=== PATIENT | female | born 1960 | race African-American/Black ===

== ENCOUNTER 2017-07-27 09:19 | Outpatient (CLI) | payer OTHER ==
--- NOTE | 2017-07-27 21:15 | ULT ---
THYROID ULTRASOUND 07/27/17 Comparison is made with July 2014 ultrasound which showed some thyroid enlargement and two hypoec hoic nodules in the left lobe that were near 1 cm in size. Today's exam, again shows some thyroid enlargement. The right lobe measures 4.8 x 1.5 x 1.7 cm and ap pears normal. The left lobe measures 4.6 x 1.5 x 2.0 cm. There is a small 0.5 cm nodule in the inferi or pole, but I do not see two separate nodules today as before. No surrounding adenopathy was shown. IMPRESSION: 1. Mild thyromegaly, comparable to the 2015 study. 2. A single 0.5 cm nodule in the inferior pole of the left lobe. This compares favorably with th e prior study that showed two larger nodules. POS: HOME
== END 2017-07-27 09:20 | disposition home or self-care (01) ==
LOC: BURULT 09:19
PROVIDERS: ATTEND Family Medicine
DX: E04.1 Nontoxic single thyroid nodule (principal); E01.0 Iodine-deficiency related diffuse (endemic) goiter
CPT/HCPCS: 76536

== ENCOUNTER 2018-04-20 11:22 | Outpatient (CLI) | payer OTHER ==
[2018-04-20 17:38] LABS: #Basophils 0.1 thou/uL (0.0-0.2); #Eosinphils 0.2 thou/uL (0.0-0.7); #Lymphocytes 1.5 thou/uL (1.20-3.40); #Monocytes 0.6 thou/uL (0.11-0.59); #Neutrophils 3.2 thou/uL (1.40-6.50); %Basophils 1.3 % (0.0-1.0); %Eosinophils 4.1 % (0.0-10.0); %Lymphocytes 27.3 % (21.0-51.0); %Monocytes 10.4 % (0.0-10.0); %Neutrophils 56.9 % (42.0-75.0); Hemoglobin 14.3 g/dL (12.0-16.0); Mean Corpuscular HGB CONC 31.9 g/dL (32.0-36.0); Mean Corpuscular Hemoglobin 30.6 pg (27.0-31.0); Mean Corpuscular Volume 96.2 fL (78.0-98.0); Mean Platelet Volume 10.2 fL (7.4-10.4); Platelet Count 255 thou/uL (130-400); RBC Distribution Width 12.3 % (11.5-14.5); Red Blood Cell (RBC) Count 4.66 mill/uL (4.20-5.40); White Blood Cell (WBC) Count 5.6 thou/uL (4.8-10.8)
[2018-04-20 17:53] LABS: ALT (SGPT) 15 U/L (8-55); AST (SGOT) 20 U/L (5-34); Alkaline Phosphatase 104 U/L (40-150); Anion Gap 13 mmol/L (10-20); BUN (Urea Nitrogen) 9 mg/dL (9.8-20.1); Bilirubin, Direct 0.2 mg/dL (0.1-0.3); Bilirubin, Total 0.5 mg/dL (0.2-1.2); CRP (Inflammatory) Less than 0.50 mg/dL (= or < 0.5); Calc. Creatinine Clearance 0 mL/min (70-130); Calcium 9.8 mg/dL (7.8-10.44); Carbon Dioxide 27 mmol/L (22-29); Chloride 108 mmol/L (98-107); Estimated GFR-MDRD 66; Globulin 3.5 g/dL (2.4-3.5); Glucose 83 mg/dL (70-105); Potassium 4.6 mmol/L (3.5-5.1); Protein, Total 7.5 g/dL (6.0-8.3); Sodium 143 mmol/L (136-145)
--- NOTE | 2018-04-20 21:00 | RAD ---
LUMBAR SPINE COMPLETE 04/20/18 A total of seven views were provided and compared with the prior study of 10/20/15. No acute fracture was seen. The disc spaces are about the same as before showing some very slight rosemary rowing at L2-L3 but it is not substantially different than before. osteophytes are seen at all levels . T12 and L1 vertebral bodies have perhaps a very minor amount of wedging, but it is not impressive. Between flexion and extension, there was a little bit of anterior movement of L4 on L5, but the amoun t was insignificant. The SI joints were symmetrical and unchanged in appearance from before. There is some mild degenerative change of the hips. IMPRESSION: Degenerative changes of the spine. The appearance is only minimally different from 2016. POS: HOME
== END 2018-04-20 11:23 | disposition home or self-care (01) ==
LOC: BURRAD 11:22
PROVIDERS: ATTEND Family Medicine
DX: M54.42 Lumbago with sciatica, left side (principal); M06.4 Inflammatory polyarthropathy; B18.2 Chronic viral hepatitis C; M47.816 Spondylosis without myelopathy or radiculopathy, lumbar region
CPT/HCPCS: 36415; 72100; 80053; 82248; 85025; 85652; 86140

== ENCOUNTER 2018-05-05 14:12 | Emergency (ER) | payer OTHER ==
[2018-05-05 15:01] LABS: Eosinophils 3 % (0-10); Hemoglobin 14.6 g/dL (12.0-16.0); Lymphocytes 22 % (21-51); MDiff Complete? YES; Mean Corpuscular HGB CONC 34.4 g/dL (32.0-36.0); Mean Corpuscular Hemoglobin 30.8 pg (27.0-31.0); Mean Corpuscular Volume 89.5 fL (78.0-98.0); Mean Platelet Volume 9.9 fL (7.4-10.4); Monocytes 11 % (0-10); Neutrophil 63 % (42-75); Platelet Count 281 thou/uL (130-400); RBC Distribution Width 12.7 % (11.5-14.5); Red Blood Cell (RBC) Count 4.73 mill/uL (4.20-5.40); White Blood Cell (WBC) Count 5.9 thou/uL (4.8-10.8)
[2018-05-05 15:03] LABS: ALT (SGPT) 18 U/L (8-55); AST (SGOT) 22 U/L (5-34); Albumin 4.1 g/dL (3.5-5.0); Alkaline Phosphatase 108 U/L (40-150); Anion Gap 13 mmol/L (10-20); BUN (Urea Nitrogen) 8 mg/dL (9.8-20.1); Bilirubin, Total 0.3 mg/dL (0.2-1.2); Calc. Creatinine Clearance 0 mL/min (70-130); Carbon Dioxide 27 mmol/L (22-29); Chloride 107 mmol/L (98-107); Estimated GFR-MDRD 58; Globulin 4.4 g/dL (2.4-3.5); Glucose 91 mg/dL (70-105); Potassium 4.1 mmol/L (3.5-5.1); Protein, Total 8.5 g/dL (6.0-8.3); Sodium 143 mmol/L (136-145)
[2018-05-05 15:05] LABS: CKMB 3.1 ng/mL (0-6.6); Troponin I Less than 0.010 ng/mL (< 0.028)
[2018-05-05] MEDS ORDERED: Hydrochlorothiazide 25 MG TAB ONE (16:00)
--- NOTE | 2018-05-05 19:59 | RAD ---
PORTABLE CHEST: Date: 05-05-18 FINDINGS: An AP portable film at 1419 is compared with a 11-07-03 study. The heart remains normal in size and the lungs are clear. No infiltrate or effusion is seen. The medi astinum appears normal. IMPRESSION: No acute thoracic finding. POS: HOME
== END 2018-05-05 16:07 | disposition home or self-care (01) ==
LOC: BURERS 14:12
DX: I10 Essential (primary) hypertension (principal); R00.2 Palpitations; F17.210 Nicotine dependence, cigarettes, uncomplicated; Z79.899 Other long term (current) drug therapy
CPT/HCPCS: 71045; 80053; 82553; 84443; 84484; 85025; 93005

== ENCOUNTER 2018-08-09 10:43 | Outpatient (CLI) | payer OTHER ==
--- NOTE | 2018-08-09 18:36 | ULT ---
THYROID ULTRASOUND: 07/12/18 Ultrasonography of the thyroid gland was done in this patient with a history of a thyroid nodule. The right lobe measures 4.9 x 1.5 x 2.1 cm. No masses were seen. The left lobe measures 5.3 x 1.5 x 2.1 cm. A small 6 to 7 mm nodule is seen in the inferior pole of t his lobe. No surrounding adenopathy was shown. IMPRESSION: 1. Mild thyromegaly. 2. 6 to 7 mm nodule, inferior pole, left lobe. POS: HOME
== END 2018-08-09 10:44 | disposition home or self-care (01) ==
LOC: BURULT 10:43
PROVIDERS: ATTEND Otolaryngology Plastic Surgery within the Head & Neck
DX: Z86.39 Personal history of other endocrine, nutritional and metabolic disease (principal); E04.1 Nontoxic single thyroid nodule
CPT/HCPCS: 76536

== ENCOUNTER 2021-05-19 13:08 | Outpatient (CLI) | payer OTHER | END 2021-05-19 13:09 | disposition home or self-care (01) | LOC: BURRAD 13:08 | PROVIDERS: ATTEND Neurological Surgery | DX: M48.061 Spinal stenosis, lumbar region without neurogenic claudication (principal) | CPT/HCPCS: 72110 ==

== ENCOUNTER 2022-05-28 07:53 | Outpatient (CLI) | payer OTHER | END 2022-05-28 07:54 | disposition home or self-care (01) | LOC: BURCT 07:53 | PROVIDERS: ATTEND Family Medicine | DX: R10.31 Right lower quadrant pain (principal); R19.5 Other fecal abnormalities | CPT/HCPCS: 74177 ==

== ENCOUNTER 2022-07-13 08:21 | Outpatient (CLI) | payer OTHER | END 2022-07-13 08:22 | disposition home or self-care (01) | LOC: BURCT 08:21 | PROVIDERS: ATTEND Neurological Surgery | DX: M51.16 Intervertebral disc disorders with radiculopathy, lumbar region (principal); M43.16 Spondylolisthesis, lumbar region; M51.35 Other intervertebral disc degeneration, thoracolumbar region; M51.37 Other intervertebral disc degeneration, lumbosacral region | CPT/HCPCS: 72131 ==

== ENCOUNTER 2022-09-28 16:22 | Outpatient (CLI) | payer OTHER | END 2022-09-28 16:23 | disposition home or self-care (01) | LOC: BURRAD 16:22 | PROVIDERS: ATTEND Family Medicine | DX: J18.9 Pneumonia, unspecified organism (principal) | CPT/HCPCS: 71046 ==

== ENCOUNTER 2022-10-08 13:27 | Emergency (ER) | payer OTHER ==
[~2022-10-08 13:27] MED LIST: Iopamidol 370 76% 100 ML VIAL ONE
[2022-10-08] MEDS ORDERED: Ipratropium/Albuterol 3 ML NEB ONE (13:56)
[2022-10-08] MEDS ORDERED: Acetaminophen 650 MG Suppository ONE (13:56)
[2022-10-08] MEDS ORDERED: Acetaminophen 325 MG TAB ONE (13:57)
[2022-10-08 14:09] LABS: #Basophils 0.1 thou/uL (0.0-0.2); #Eosinphils 0.2 thou/uL (0.0-0.7); #Lymphocytes 2.7 thou/uL (1.20-3.40); #Monocytes 0.5 thou/uL (0.11-0.59); #Neutrophils 3.8 thou/uL (1.40-6.50); %Basophils 0.9 % (0.0-1.0); %Eosinophils 3.1 % (0.0-10.0); %Lymphocytes 36.7 % (21.0-51.0); %Neutrophils 52.4 % (42.0-75.0); Hemoglobin 14.3 g/dL (12.0-16.0); Mean Corpuscular Hemoglobin 30.1 pg (27.0-31.0); Mean Platelet Volume 7.6 fL (7.4-10.4); Platelet Count 353 10x3/uL (130-400); RBC Distribution Width 12.9 % (11.5-14.5); Red Blood Cell (RBC) Count 4.75 mill/uL (4.20-5.40); White Blood Cell (WBC) Count 7.2 10x3/uL (4.8-10.8)
[2022-10-08 14:28] LABS: Anion Gap 13 mmol/L (10-20); BUN (Urea Nitrogen) 12 mg/dL (9.8-20.1); Calc. Creatinine Clearance 0 mL/min (70-130); Calcium 9.2 mg/dL (7.8-10.44); Carbon Dioxide 29 mmol/L (23-31); Chloride 102 mmol/L (98-107); Estimated GFR 52; Glucose 137 mg/dL (80-115); Sodium 141 mmol/L (136-145)
[2022-10-08 14:31] LABS: Potassium 2.5 mmol/L (3.5-5.1)
[2022-10-08] MEDS ORDERED: Potassium Chloride 20 MEQ TAB ONE (14:40)
== END 2022-10-08 16:57 | disposition home or self-care (01) ==
LOC: BURERS 13:27
DX: J06.9 Acute upper respiratory infection, unspecified (principal); I10 Essential (primary) hypertension; F17.210 Nicotine dependence, cigarettes, uncomplicated
CPT/HCPCS: 36415; 71275; 80048; 83880; 84484; 85025; 85379; 87804; J7620; Q9967

== ENCOUNTER 2023-11-21 16:17 | Outpatient (CLI) | payer OTHER | END 2023-11-21 16:18 | disposition home or self-care (01) | LOC: BURRAD 16:17 | PROVIDERS: ATTEND Family Medicine | DX: M17.11 Unilateral primary osteoarthritis, right knee (principal) ==

== ENCOUNTER 2024-02-13 12:11 | Emergency (ER) | payer OTHER ==
[2024-02-13] MEDS ORDERED: Morphine 4 MG/ML VIAL ONE (13:23)
[2024-02-13] MEDS ORDERED: Morphine 2 MG/ML VIAL ONE (13:24)
[2024-02-13 13:55] LABS: ALT (SGPT) 12 U/L (8-55); AST (SGOT) 20 U/L (5-34); Albumin 3.5 g/dL (3.4-4.8); Alkaline Phosphatase 142 U/L (40-110); Anion Gap 14 mmol/L (10-20); BUN (Urea Nitrogen) 15 mg/dL (9.8-20.1); Bilirubin, Total 0.3 mg/dL (0.2-1.2); Calc. Creatinine Clearance 0 mL/min (70-130); Calcium 9.5 mg/dL (7.8-10.44); Carbon Dioxide 26 mmol/L (23-31); Chloride 106 mmol/L (98-107); Estimated GFR 61; Glucose 90 mg/dL (80-115); Lipase 67 U/L (8-78); Potassium 3.6 mmol/L (3.5-5.1); Protein, Total 7.5 g/dL (5.8-8.1); Sodium 142 mmol/L (136-145)
[2024-02-13 14:02] LABS: Hematocrit 42.9 % (36.0-47.0); Mean Corpuscular HGB CONC 32.6 g/dL (32.0-36.0); Mean Corpuscular Hemoglobin 28.7 pg (27.0-31.0); Mean Corpuscular Volume 88.2 fl (78.0-98.0); Mean Platelet Volume 7.8 fL (7.4-10.4); Platelet Count 271 10x3/uL (130-400); RBC Distribution Width 12.6 % (11.5-14.5); Red Blood Cell (RBC) Count 4.87 mill/uL (4.20-5.40); White Blood Cell (WBC) Count 6.8 10x3/uL (4.8-10.8)
[2024-02-13] MEDS ORDERED: Lidocaine 1% w/Epinephrine 1:100K 20 ML VIAL ONE (14:02)
[2024-02-13 14:07] LABS: Eosinophils 3 % (0-10); Lymphocytes 22 % (21-51); MDiff Complete? YES; Monocytes 12 % (0-10); Neutrophil 59 % (42-75)
[2024-02-13 14:59] LABS: Bilirubin Negative (Negative); Blood, Urine Negative (Negative); Clarity Hazy (Clear); Glucose, Urine (Dipstick) Negative (Negative); Ketone, Urine Negative (Negative); Leukocyte Negative (Negative); Nitrite Negative (Negative); Protein, Urine (Dipstick) Negative (Neg-Trace); pH, Urine 6.5 (5.0-9.0)
[2024-02-13 15:04] LABS: Bacteria/HPF 2+ HPF (None Seen); CAUTI Indications for Culture Dysuria,urgency,freq; RBC/HPF None Seen HPF (0-3); WBC/HPF 0-3 HPF (0-3)
[2024-02-13 15:05] LABS: Urine Culture Reflex No No
[2024-02-13] MEDS ORDERED: HYDROcodone/Acetaminophen 10/325 mg Tablet ONE (15:33)
== END 2024-02-13 15:41 | disposition home or self-care (01) ==
LOC: BURERS 12:11
DX: M54.50 Low back pain, unspecified (principal); G89.29 Other chronic pain; I10 Essential (primary) hypertension; F17.210 Nicotine dependence, cigarettes, uncomplicated; E16.2 Hypoglycemia, unspecified; Z79.899 Other long term (current) drug therapy
CPT/HCPCS: 36415; 72131; 80053; 81001; 83690; 85025; 96374; J2272